=== PATIENT | male | born 1970 | race African-American/Black ===

== ENCOUNTER 2016-12-08 17:09 | Emergency (ER) | payer OTHER ==
[~2016-12-08] VITALS: Ht 190.5 cm; Wt 90.0 kg
[~2016-12-08 17:09] MED LIST: LORT5TAB PO; NAPR500 PO; Z.0.NO CURRENT MEDS
[2016-12-08 17:11] VITALS: BP 124/89; PULSE 90; RESP 18; TEMP 98.4; O2SAT 98
--- NOTE | 2016-12-08 18:53 | PD ---
HPI Chief Complaint: GI Complaint Time Seen by Provider: 18:46 Travel History International Travel<30 days: No Contact w/Intl Traveler<30days: No Traveled to known affect area: No History of Present Illness HPI This is a 46-year-old male presents for evaluation of nausea, vomiting, abdominal cramping. He reports a history of heroin abuse, most recently used about 1.5 weeks ago. He reports that his primary care physician in [place] started him on methadone and clonidine about a week ago. He traveled here to visit family about 5 days ago and reports that he ran out of the methadone and clonidine for 5 days ago. Shortly afterwards he developed nausea, vomiting and abdominal cramping. He reports vomiting several times a day, as well as a generalized abdominal cramping which comes and goes lasting about 15 minutes at a time with no obvious aggravating or relieving factors. He reports that it feels like he is withdrawing. He denies any dysuria, testicular or scrotal pain. He has no other complaints. [facility] Past Medical History Medical History: Denies Significant Hx Social History Alcohol Use: No Tobacco Use: Yes Substance Use: Yes (heroin) Allergies-Medications (Allergen,Severity, Reaction): Coded Allergies: No Known Allergies (Verified , 12/08/16) Reported Meds & Prescriptions Reported Meds & Active Scripts Active No Active Prescriptions or Reported Medications Review of Systems Except as stated in HPI: all other systems reviewed are Neg Physical Exam Narrative GENERAL: Well-developed well-nourished male in no acute distress SKIN: Warm and dry. HEAD: Atraumatic. Normocephalic. EYES: Pupils equal and round. No scleral icterus. No injection or drainage. ENT: No nasal bleeding or discharge. Mucous membranes pink and moist. NECK: Trachea midline. No JVD. CARDIOVASCULAR: Regular rate and rhythm. No murmur appreciated. RESPIRATORY: No accessory muscle use. Clear to auscultation. Breath sounds equal bilaterally. GASTROINTESTINAL: Abdomen soft, generalized mild tenderness to palpation without guarding. MUSCULOSKELETAL: No obvious deformities. No edema. NEUROLOGICAL: Awake and alert. No obvious cranial nerve deficits. Motor grossly within normal limits. Normal speech. PSYCHIATRIC: Appropriate mood and affect; insight and judgment normal. Data Data Last Documented VS Vital Signs Date Time Temp Pulse Resp B/P Pulse Ox O2 Delivery O2 Flow Rate FiO2 12/08/16 17:11 98.4 90 18 124/89 98 Room Air Orders Complete Blood Count With Diff (12/08/16 18:51) Comprehensive Metabolic Panel (12/08/16 18:51) Lipase (12/08/16 18:51) Urinalysis - C+S If Indicated (12/08/16 18:51) Labs Laboratory Tests Test 12/08/16 19:19 White Blood Count 6.3 TH/MM3 Red Blood Count 5.22 MIL/MM3 Hemoglobin 15.6 GM/DL Hematocrit 45.4 % Mean Corpuscular Volume 87.0 FL Mean Corpuscular Hemoglobin 29.8 PG Mean Corpuscular Hemoglobin 34.3 % Concent Red Cell Distribution Width 13.7 % Platelet Count 310 TH/MM3 Mean Platelet Volume 7.8 FL Neutrophils (%) (Auto) 70.5 % Lymphocytes (%) (Auto) 18.7 % Monocytes (%) (Auto) 10.0 % Eosinophils (%) (Auto) 0.3 % Basophils (%) (Auto) 0.5 % Neutrophils # (Auto) 4.5 TH/MM3 Lymphocytes # (Auto) 1.2 TH/MM3 Monocytes # (Auto) 0.6 TH/MM3 Eosinophils # (Auto) 0.0 TH/MM3 Basophils # (Auto) 0.0 TH/MM3 CBC Comment DIFF FINAL Differential Comment Urine Color YELLOW Urine Turbidity HAZY Urine pH 6.5 Urine Specific [place] 1.040 Urine Protein 100 mg/dL Urine Glucose (UA) NEG mg/dL Urine Ketones 80 mg/dL Urine Occult Blood NEG Urine Nitrite NEG Urine Bilirubin NEG Urine Urobilinogen 4.0 MG/DL Urine Leukocyte Esterase TRACE Urine RBC 1 /hpf Urine WBC 4 /hpf Urine Squamous Epithelial 1 /hpf Cells Urine Mucus MANY /lpf Microscopic Urinalysis Comment CULT NOT INDICATED Sodium Level 141 MEQ/L Potassium Level 3.7 MEQ/L Chloride Level 103 MEQ/L Carbon Dioxide Level 27.3 MEQ/L Anion Gap 11 MEQ/L Blood Urea Nitrogen 21 MG/DL Creatinine 1.22 MG/DL Estimat Glomerular Filtration 77 ML/MIN Rate Random Glucose 84 MG/DL Calcium Level 8.9 MG/DL Total Bilirubin 0.6 MG/DL Aspartate Amino Transf 13 U/L (AST/SGOT) Alanine Aminotransferase 20 U/L (ALT/SGPT) Alkaline Phosphatase 101 U/L Total Protein 8.2 GM/DL Albumin 4.7 GM/DL Lipase 101 U/L [facility] Medical Decision Making Medical Screen Exam Complete: Yes Emergency Medical Condition: Yes Medical Record Reviewed: Yes Differential Diagnosis Opiate withdrawal, dehydration, electrolyte abnormality, gastritis, pancreatitis , biliary pathology, gastroenteritis Narrative Course This is a 46-year-old male with history of opiate abuse who was started on methadone and clonidine for withdrawal purposes about a week ago and finished his medication 4-5 days ago. Since then he has had generalized abdominal cramping, nausea and vomiting. The patient was initially seen in triage were basic lab work has been ordered. The patient will be moved to a medical bed when one becomes available. Scripts No Active Prescriptions or Reported Meds Dayne Miller Dec 08, 2016 18:53
[2016-12-08 19:54] LABS: AUTOMATED NEUTROPHIL # 4.5 TH/MM3 (1.8-7.7); BASOPHIL % 0.5 % (0.0-2.0); BLOOD, URINE NEG (NEG); COMMENT (UR) CULT NOT INDICATED; CULTURE IF INDICATED CULT NOT INDICATED; EOSINOPHIL % 0.3 % (0.0-4.0); GLUCOSE,URINE NEG (NEG); HEMATOCRIT 45.4 % (39.0-51.0); HEMO FLAGS DIFF FINAL; KETONE, URINE 80 mg/dL (NEG); LYMPH % 18.7 % (9.0-44.0); LYMPHOCYTE # 1.2 TH/MM3 (1.0-4.8); MEAN CORPUSCULAR HEMOGLOBIN 29.8 PG (27.0-34.0); MEAN CORPUSCULAR HGB CONC 34.3 % (32.0-36.0); MUCUS URINE MANY /lpf (OCC); NEUT % 70.5 % (16.0-70.0); NITRITE,URINE NEG (NEG); PH, URINE 6.5 (5.0-8.5); PLATELET COUNT 310 TH/MM3 (150-450); RED BLOOD COUNT 5.22 MIL/MM3 (4.50-5.90); RED CELL DISTRIBUTION WIDTH 13.7 % (11.6-17.2); SQUAMOUS EPITHELIAL CELL URINE 1 /hpf (0-5); URINE COLOR YELLOW (YELLW/STRAW); WHITE BLOOD COUNT 6.3 TH/MM3 (4.0-11.0)
[2016-12-08 20:18] LABS: ANION GAP 11 MEQ/L (5-15); AST (GOT) 13 U/L (15-37); BICARBONATE 27.3 MEQ/L (21.0-32.0); BLOOD UREA NITROGEN 21 MG/DL (7-18); CHLORIDE 103 MEQ/L (98-107); GLOMERULAR FILTRATION RATE 77 ML/MIN (>89); POTASSIUM 3.7 MEQ/L (3.5-5.1); SODIUM (NA) 141 MEQ/L (136-145)
[2016-12-08 20:20] LABS: ALKALINE PHOSPHATASE 101 U/L (45-117); ALT (GPT) 20 U/L (12-78); TOTAL BILIRUBIN ADULT 0.6 MG/DL (0.2-1.0)
[2016-12-08 21:00] VITALS: BP 158/92; PULSE 84; RESP 18; O2SAT 97
[2016-12-08] MEDS ORDERED: PROCHLORPERAZINE INJ 10 MG/2 ML VIAL IVS ONE (21:00)
[2016-12-08] MEDS ORDERED: ONDANSETRON HCL 4 MG/2 ML VIAL IVP ONE (21:00)
[2016-12-08] MEDS ORDERED: SODIUM CHLORIDE 0.9% FLUSH 10 ML FLUSH IV FLUSH PRN (21:00)
[2016-12-08] MEDS ORDERED: diphenhydrAMINE HCL 50 MG/ML VIAL IV PUSH ONE (21:00)
--- NOTE | 2016-12-08 21:09 | PD ---
Physical Exam Time Seen by Provider: 21:03 Narrative Work up was initiated in triage and transferred to a medical pod where care was assumed by myself and my attending physician Dr. Bennett. Patient appears without distress. His vital signs are stable. He is not tachycardic. Mild epigastric tenderness to deep palpation, no rebound tenderness or guarding. He states that he has been vomiting for the last 4 days. Prior to that he states he felt like he may have been coming down with the flu. Pt has a history of opiate dependence, and states he snorted them and has never injected them. He went through a detox protocol to get off of opiates and believes that he may have on through to quickly which has caused him to feel as though he is withdrawing. Denies any chest pain or tightness. No difficulty breathing. No fevers. He has been chilled. No diarrhea. No hematemesis. No other symptoms to report at this time. Data Data Last Documented VS Vital Signs Date Time Temp Pulse Resp B/P Pulse Ox O2 Delivery O2 Flow Rate FiO2 12/08/16 22:03 80 18 153/86 98 Room Air 12/08/16 17:11 98.4 Orders Complete Blood Count With Diff (12/08/16 18:51) Comprehensive Metabolic Panel (12/08/16 18:51) Lipase (12/08/16 18:51) Urinalysis - C+S If Indicated (12/08/16 18:51) Iv Access Insert/Monitor (12/08/16 20:49) Ecg Monitoring (12/08/16 20:49) Oximetry (12/08/16 20:49) Ondansetron Inj (Zofran Inj) (12/08/16 21:00) Sodium Chlor 0.9% 1000 Ml Inj (Ns 1000 M (12/08/16 20:49) Sodium Chloride 0.9% Flush (Ns Flush) (12/08/16 21:00) Prochlorperazine Inj (Compazine Inj) (12/08/16 21:00) Diphenhydramine Inj (Benadryl Inj) (12/08/16 21:00) Labs Laboratory Tests Test 12/08/16 19:19 White Blood Count 6.3 TH/MM3 Red Blood Count 5.22 MIL/MM3 Hemoglobin 15.6 GM/DL Hematocrit 45.4 % Mean Corpuscular Volume 87.0 FL Mean Corpuscular Hemoglobin 29.8 PG Mean Corpuscular Hemoglobin 34.3 % Concent Red Cell Distribution Width 13.7 % Platelet Count 310 TH/MM3 Mean Platelet Volume 7.8 FL Neutrophils (%) (Auto) 70.5 % Lymphocytes (%) (Auto) 18.7 % Monocytes (%) (Auto) 10.0 % Eosinophils (%) (Auto) 0.3 % Basophils (%) (Auto) 0.5 % Neutrophils # (Auto) 4.5 TH/MM3 Lymphocytes # (Auto) 1.2 TH/MM3 Monocytes # (Auto) 0.6 TH/MM3 Eosinophils # (Auto) 0.0 TH/MM3 Basophils # (Auto) 0.0 TH/MM3 CBC Comment DIFF FINAL Differential Comment Urine Color YELLOW Urine Turbidity HAZY Urine pH 6.5 Urine Specific [place] 1.040 Urine Protein 100 mg/dL Urine Glucose (UA) NEG mg/dL Urine Ketones 80 mg/dL Urine Occult Blood NEG Urine Nitrite NEG Urine Bilirubin NEG Urine Urobilinogen 4.0 MG/DL Urine Leukocyte Esterase TRACE Urine RBC 1 /hpf Urine WBC 4 /hpf Urine Squamous Epithelial 1 /hpf Cells Urine Mucus MANY /lpf Microscopic Urinalysis Comment CULT NOT INDICATED Sodium Level 141 MEQ/L Potassium Level 3.7 MEQ/L Chloride Level 103 MEQ/L Carbon Dioxide Level 27.3 MEQ/L Anion Gap 11 MEQ/L Blood Urea Nitrogen 21 MG/DL Creatinine 1.22 MG/DL Estimat Glomerular Filtration 77 ML/MIN Rate Random Glucose 84 MG/DL Calcium Level 8.9 MG/DL Total Bilirubin 0.6 MG/DL Aspartate Amino Transf 13 U/L (AST/SGOT) Alanine Aminotransferase 20 U/L (ALT/SGPT) Alkaline Phosphatase 101 U/L Total Protein 8.2 GM/DL Albumin 4.7 GM/DL Lipase 101 U/L [facility] Medical Record Reviewed: Yes Supervised Visit with ROSEANN: No Differential Diagnosis Opiate withdrawal versus gastritis versus electrolyte abnormality versus influenza Narrative Course 46-year-old male presents to the emergency department for evaluation of nausea and vomiting. Patient appears without distress. He does have mild epigastric tenderness to palpation. CBC and CMP are without acute concern. Lipase is 131. Urinalysis is hazy him a 100 proteinuria, 80 ketones, trace leukocyte esterase, many mucus. Culture is indicated. Patient is given IV fluids and Compazine. 2142 Upon reassessment, pt states things are "easing up." He hasn't vomited since being medicated. 2229 patient appears restless. He has not vomited. He'll be discharged at this time. Diagnosis Primary Impression: Nausea & vomiting Qualified Code: R11.2 - Non-intractable vomiting with nausea, unspecified vomiting type Additional Impression: Opiate withdrawal Referrals: [facility] (Out patient) Primary Care Physician Patient Instructions: General Instructions, Opioid Withdrawal (ED) Additional Instruction: Orange diet Clear liquids, advance as tolerated Follow-up with the primary care provider Return immediately with any acute worsening of symptoms Med/Other Pt SpecificInfo: Prescription(s) given Scripts Promethazine (Phenergan)25 Mg Tab25 Mg PO Q6H PRN (Nausea/Vomiting) #15 TAB Ref 0 Prov:Rosemary Fong 12/08/16 Disposition: DISCHARGE HOME Condition: Stable Rosemary Fong Dec 08, 2016 21:09
[2016-12-08] MEDS: SODIUM CHLOR 0.9% 1000 ML INJ 1,000 ML IV SCH ×2 (21:34→21:40)
[2016-12-08 22:03] VITALS: BP_SYST 153; BP_SYST 155; BP_DIAS 86; BP_DIAS 97; PULSE 80; PULSE 84; RESP 18; O2SAT 98
[2016-12-08] MEDS ORDERED: PROM25TA5 PO (22:38)
[2016-12-08 22:50] VITALS: BP 155/97; PULSE 84; RESP 18; O2SAT 98
[2016-12-08 23:24] VITALS: BP 151/63
== END 2016-12-08 23:32 | disposition home or self-care (01) ==
LOC: NEPE 17:09
DX: R11.2 Nausea with vomiting, unspecified (principal); F11.23 Opioid dependence with withdrawal; R10.9 Unspecified abdominal pain; Z72.0 Tobacco use
CPT/HCPCS: 80053; 81001; 83690; 85025; 96361; 96374; 96375; 99284; J0780; J1200; J7030